=== PATIENT | female | born 1990 | race Caucasian/White ===

== ENCOUNTER → 2016-12-25 | Day surgery (SDC) | payer OTHER ==
[~2016-12-25] MED LIST: AMOXICILLIN500 M1 PO; BACTRIM DS TABL1 TA1 PO; BENTYL10 MG PO; BENZONATATE PO; DITROPAN XL PO; ESTRACE0.5 MG TD; FLEXERIL10 MG PO; HYDROCODON-ACE1 EAC7 PO; KLONOPIN1 MG PO; LUVOX100 MG PO; MACROBID100 MG PO; MOTRIN600 MG PO; MUCINEX D ER T1 EACH PO; NO MEDICATIONS; PERCOCET 7.5-31 EACH PO; PHENERGAN12.5 M1 PR; PHENERGAN25 M1 PO; PHENERGAN25 MG PO; PREDNISONE PO; PRILOSEC PO; PYRIDIUM PO; PYRIDIUM100 MG PO; TIZANIDINE HCL4 M1 PO; TORADOL10 MG PO; VIBRAMYCIN100 M1 PO; ZITHROMAX PO
--- NOTE | ~2016-12-25 | OR ---
Unit #: [id number] #: [id number] Patient: FANG MUNIZ [id number] [address] [address] [id number] O MR#: [id number] NAME: FANG MUNIZ ROOM: Date of Procedure: 12/25/2016 Admission Date: 12/25/2016 Surgeon: Ray Bal M.D. : 1990 Attending Physician: Ray Bal M.D. Primary Care Physician: Maddie Bal M.D. OPERATIVE REPORT PREOPERATIVE DIAGNOSES 1. Interstitial cystitis. 2. Chronic abdominal pain. POSTOPERATIVE DIAGNOSES 1. Interstitial cystitis. 2. Chronic abdominal pain. PROCEDURES PERFORMED 1. Implantation of epidural catheter for pain pump trial using hydromorphone. 2. Fluoroscopy. SURGICAL INDICATION AND RATIONALE Ms. Fang Muniz is a pleasant 26-year-old female, who has been having severe intractable pain in the suprapubic area as a result of interstitial cystitis. The patient has undergone various treatment options including bladder cystoscopies, which include ablation processes. The patient has also undergone DMSO instillation in the bladder with various other procedures done by her urologist with very limited relief of pain. The patient has been getting oral pain medications, which gives her some temporary relief. The patient has read about pain pumps and would be interested and undergoing a pain pump trial to see if this will help her deal with her pain better. The patient had undergone an extensive education process regarding the pain pump and the risks, benefits, and alternatives available and would like to proceed. DESCRIPTION OF PROCEDURE After obtaining full informed consent and after discussion with the patient of possible complications including infection, bleeding, paralysis, mild headaches, , and other perioperative complications were discussed with the patient and consent was obtained in front of nurse, Amada, the preoperative nurse. The patient was then taken back to the operating room, where a time-out was done in accordance to the joint commission guidelines where the patient's identity, procedure, and side of procedure were verified. The patient received antibiotic coverage 30 minutes before entering the operating room. This patient was allergic to various local anesthetics and hence, no anesthetics were used in this procedure. The patient was then positioned in the prone position. Standard monitors were placed and monitored anesthesia care was provided by the anesthesiologist. Then, under fluoroscopic view, an AP view, I was able to identify the interspace between L2 and L3. Then, since this Unit #: [id number] #: [id number] Patient: FANG MUNIZ patient had allergies to local anesthetics, I made sure that the patient was well under monitored anesthesia care before placing the 17-gauge Tuohy needle through the skin and accessing the epidural space using a loss of resistance technique. Once the epidural space was accessed and after negative aspiration of heme, CSF, and paresthesia, I navigated an Arrow catheter through the Tuohy needle to reach the upper border of T10, which was done under live fluoroscopic view. I also visualized the spine under lateral projections to make sure that this catheter was in the posterior epidural space. Once this was done, I removed the stylet and then secured this catheter to the skin using Mastisol and Tegaderm. I placed a special adapter at the opposite end of the catheter tip and the patient was brought back to the recovery room for neurological monitoring. PLAN OF CARE The patient was then discharged home neurologically intact with plans to return to my office the following day to have the pain pump trial initiated using hydromorphone with a portable pump. The patient and her grandmother, Cora, acknowledge understanding of all the risks, benefits, and alternatives available and would like to proceed. Dictated by... Shiraz Samuel/yao TD: 12/28/2016 15:56 JOB #: [id number] OPERATIVE REPORT Page 1 of 1 X Ray Bal MD PROCEDURE OPERATIVE NOTE
--- NOTE | ~2016-12-25 | CR185 ---
[facility] A Service of [facility] RADIOLOGY TEXT RESULTS PATIENT: DANUTA COUCH LOCATION: [facility] : [birth year] UNIT #: [id number] AGE: [address]: Ray Bal MD SEX: F ORDER DR: [id number] [facility] [address] [place], [place] [address] [id number] O MR#: [id number] Acc #: [id number] NAME: DANUTA COUCH : 1990 SEX: F STUDY DATE/TIME: 12/25/2016 15:32 UNIT: [facility] ROOM: STUDY DESCRIPTION: CR Lumbar Spine Single View Attending Physician: Ray Bal M.D. Ordering Physician: Ray Bal M.D. Primary Care Physician: Maddie Bal M.D. MEDICAL IMAGING REPORT This report is preliminary unless electronic signature is present EXAM Intraoperative fluoroscopic images lumbar spine, 12/25/2016 HISTORY Pain pump trial. Fluoroscopy time 57 seconds. Two fluoroscopic images. FINDINGS Two fluoroscopic spot images show the patient undergoing pain pump trial. Please see the procedural note for full procedural details. Dictated by... Triston Castro M.D. THIS IS AN ELECTRONICALLY VERIFIED REPORT Triston Castro M.D. at 12/26/2016 6:48 PM RIGO/braeden TD: 12/25/2016 23:23 JOB #: [id number] MEDICAL IMAGING REPORT Page 1 of 1 COPY
== END | disposition home or self-care (01) ==
LOC: CSUR 13:05
DX: G89.29 Other chronic pain (principal); N30.10 Interstitial cystitis (chronic) without hematuria; Z98.51 Tubal ligation status; Z87.442 Personal history of urinary calculi; Z90.710 Acquired absence of both cervix and uterus; Z90.49 Acquired absence of other specified parts of digestive tract; Z88.6 Allergy status to analgesic agent; Z88.8 Allergy status to other drugs, medicaments and biological substances; Z88.1 Allergy status to other antibiotic agents; Z79.899 Other long term (current) drug therapy; Z88.0 Allergy status to penicillin
CPT/HCPCS: 72020; 76000; J1170; J2250; J3010

== ENCOUNTER → 2017-02-10 | Day surgery (SDC) | payer OTHER ==
--- NOTE | ~2017-02-10 | OR ---
Unit #: [id number] #: [id number] Patient: FANG MUNIZ [id number] [address] [address] [id number] O MR#: [id number] NAME: FANG MUNIZ ROOM: Date of Procedure: 02/10/2017 Admission Date: 02/10/2017 Surgeon: Ray Bal M.D. : 1990 Attending Physician: Ray Bal M.D. Primary Care Physician: Maddie Bal M.D. OPERATIVE REPORT PREOPERATIVE DIAGNOSES 1. Interstitial cystitis. 2. Chronic abdominal pain. POSTOPERATIVE DIAGNOSES 1. Interstitial cystitis. 2. Chronic abdominal pain. PROCEDURES PERFORMED 1. Implantation of epidural catheter for pain pump trial. 2. Fluoroscopy. SURGICAL INDICATION AND RATIONALE Ms. Fang Muniz is a pleasant 26-year-old female who has been having severe abdominal pain secondary to interstitial cystitis. She has been suffering from this for the last 3 years and has tried various conservative and interventional treatment options including opioid medications in escalating dose with little relief of pain. Nonsteroidal anti-inflammatory medications and bladder instillations along with fulguration of the bladder mucosa, all of which did not give this patient any relief. The patient also does have a history of endometriosis along with this. The patient has been in the care of a ela teacher and a urologist in the past. The patient has undergone a psychological evaluation along with a cardiac clearance prior to undergoing this epidural trial of opioids. The patient also has undergone an extensive education process with myself regarding the risks, benefits, and alternatives available and I used a teach-back method to make sure that the patient understood my explanations. The patient is here to have an epidural pain pump trial. The patient is allergic to lidocaine and other local anesthetics. This has been discussed with the anesthesiologist and we have agreed to use propofol as the only general anesthetic agent to perform this procedure. DESCRIPTION OF PROCEDURE After obtaining full informed consent and after discussion with the patient of possible complications including infection, bleeding, paralysis, spinal headaches, , and other perioperative complications were discussed with the patient and consent was obtained in front of the preoperative nurse, Amada. The patient was then taken back to the operating room, where a time-out was done in accordance to the joint commission guidelines where the patient's identity, procedure, and site of procedure were verified. The patient was then positioned in the prone Unit #: [id number] #: [id number] Patient: EUN MUNIZINA position and monitored anesthesia care was provided by the anesthesiologist after standard monitors were placed. The patient was then prepped and draped in the usual fashion. Then, under fluoroscopic view and AP view, I was able to identify the L2-3 interspace and after this was verified, I made a small sanjeev in the skin using an 18-gauge needle. Subsequently, I placed a 17-gauge Tuohy needle to access the epidural space using loss of resistance technique. Once the epidural space was accessed and after negative aspiration for heme, CSF, and paresthesia, I navigated a catheter through the Tuohy needle to reach the upper border of T10 under live fluoroscopic view. This was verified both in AP and lateral views. The Tuohy needle along with stylet of the catheter was removed and it was secured to the skin using Mastisol and Tegaderm. I placed an adaptor at the end of the catheter. The patient was then brought back to the recovery room for neurological monitoring. PLAN OF CARE The patient was then discharged home, neurologically intact with plans to return to my office the following day to have the epidural functional trial done after attachment of the ambIT pump. The patient and her family acknowledge understanding of all the risks, benefits, and alternatives available and would like to proceed. Dictated by... Shiraz Samuel/yao TD: 02/21/2017 02:22 JOB #: [id number] OPERATIVE REPORT Page 1 of 1 X Ray Bal MD PROCEDURE OPERATIVE NOTE
== END | disposition home or self-care (01) ==
LOC: CSUR 05:39 → CPACUOF 08:32 → CSUR 08:32
DX: R10.9 Unspecified abdominal pain (principal); N30.10 Interstitial cystitis (chronic) without hematuria; Z88.4 Allergy status to anesthetic agent
CPT/HCPCS: 77001; 77003; J2250; J2274; J2550; J3010; J3370